=== PATIENT | male | born 1975 | race African-American/Black ===

== ENCOUNTER 2017-08-04 08:54 | Inpatient (IN) | payer OTHER ==
[2017-08-04 09:27] VITALS: BMI 24.6
--- NOTE | 2017-08-04 11:34 | HP ---
CIWA Score - CIWA Score Nausea/Vomitin Muscle Tremors: 3 Anxiety: 3 Agitation: 3 Paroxysmal Sweats: 3 Orientation: 0-Oriented Tacttile Disturbances: 1-Very Mild Itch/Numbness Auditory Disturbances: 0-None Visual Disturbances: 0-None Admission ROS S - HPI Chief Complaint: alcohol withdrawal sx Allergies/Adverse Reactions: Allergies Allergy/AdvReac Type Severity Reaction Status Date / Time pork derived (porcine) AdvReac Severe diarrhea Verified 08/04/17 10:38 NKDA Allergy Uncoded 08/04/17 10:38 History of Present Illness: 42 yo m with h/o chronical alcoholism and daily cannabis use, nicotein dependence 1/2PPD PMHX schizoaffective ot on meds, h/o withdrawal seizures, DTs? Exam Limitations: No Limitations - Ebola screening Have you traveled outside of the country in the last 21 days: No (N) Have you had contact with anyone from an Ebola affected area: No Have you been sick,other than usual withdrawal symptoms: No Do you have a fever: No - Review of Systems Constitutional: Chills, Diaphoresis, Night Sweats, Changes in sleep, Unintentional Wgt. Loss EENT: reports: No Symptoms Reported Respiratory: reports: No Symptoms reported Cardiac: reports: No Symptoms Reported GI: reports: Nausea, Poor Appetite, Poor Fluid Intake, Indigestion, Abdominal cramping : reports: No Symptoms Reported Musculoskeletal: reports: No Symptoms Reported (chest pain on palpation of chest from sleeping in unusual positions), Back Pain Integumentary: reports: Flushing, Sweating, Other (poor skin turgor) Neuro: reports: Headache, Numbness, Seizure, Tingling, Tremors Endocrine: reports: Increased Thirst Hematology: reports: No Symptoms Reported Psychiatric: reports: Judgement Intact, Mood/Affect Appropiate, Orientated x3, Anxious, Depressed Other Systems: Reviewed and Negative Patient History - Patient Medical History Hx Anemia: No Hx Asthma: No Hx Chronic Obstructive Pulmonary Disease (COPD): No Hx Cancer: No Hx Cardiac Disorders: No Hx Congestive Heart Failure: No Hx Hypertension: No Hx Hypercholesterolemia: No Hx Pacemaker: No HX Cerebrovascular Accident: No Hx Seizures: Yes (alcohol related-last episode was in 07/30/17) Hx Dementia: No Hx Diabetes: No Hx Gastrointestinal Disorders: Yes (acid reflux) Hx Liver Disease: No Hx Genitourinary Disorders: No Hx Sexually Transmitted Disorders: No Hx Renal Disease (ESRD): No Hx Thyroid Disease: No Hx Human Immunodeficiency Virus (HIV): No Hx Hepatitis C: No Hx Depression: No Hx Suicide Attempt: No (no si at this time) Hx Bipolar Disorder: No Hx Schizophrenia: Yes (schizoaffective disorder, not taking meds) - Patient Surgical History Past Surgical History: No Hx Neurologic Surgery: No Hx Cataract Extraction: No Hx Cardiac Surgery: No Hx Lung Surgery: No Hx Breast Surgery: No Hx Breast Biopsy: No Hx Abdominal Surgery: No Hx Appendectomy: No Hx Cholecystectomy: No Hx Genitourinary Surgery: No Hx Section: No Hx Orthopedic Surgery: No Anesthesia Reaction: No - PPD History Previous Implant?: Yes Documented Results: Negative w/o proof Implanted On Prior R Admission?: No PPD to be Administered?: Yes - Reproductive History Patient is a Female of Child Bearing Age (11 -55 yrs old): No Patient : No - Smoking Cessation Smoking history: Current every day smoker Have you smoked in the past 12 months: Yes Aproximately how many cigarettes per day: 10 Hx Chewing Tobacco Use: No Initiated information on smoking cessation: No 'Breaking Loose' booklet given: 08/04/17 - Substance & Tx. History Hx Alcohol Use: Yes Hx Substance Use: Yes Substance Use Type: Alcohol, Marijuana Hx Substance Use Treatment: Yes - Substances Abused Alcohol-beer/vodka Route: Oral Frequency: Daily Amount used: 1case/1 gal. Age of first use: 17 Date of Last Use: 08/03/17 Marijuana Route: Smoking Frequency: Daily Amount used: $10 Age of first use: 10 Date of Last Use: 08/04/17 Family Disease History - Family Disease History Family Disease History: Other: Father (HIV+, , heroin addiction), Mother ( crack cocaine use) Admission Physical Exam [facility] - Vital Signs Vital Signs: Vital Signs - 24 hr 08/04/17 09:24 Temperature 96.8 F L Pulse Rate 101 H Respiratory 20 Rate Blood Pressure 147/78 - Physical General Appearance: Yes: Nourished, Appropriately Dressed, Disheveled, Mild Distress, Thin, Tremorous, Irritable, Sweating, Anxious HEENTM: Yes: Within Normal Limits, EOMI, Hearing grossly Normal, Normal ENT Inspection, Normocephalic, Normal Voice, DIVINA, Pharynx Normal Respiratory: Yes: Within Normal Limits, Chest Non-Tender, Lungs Clear, Normal Breath Sounds, No Respiratory Distress, No Accessory Muscle Use Neck: Yes: Within Normal Limits, No masses,lesions,Nodules, Supple, Trachea in good position Breast: Yes: Breast Exam Deferred Cardiology: Yes: Within Normal Limits, Regular Rhythm, Regular Rate, S1, S2 Abdominal: Yes: Within Normal Limits, Normal Bowel Sounds, Non Tender, Flat, Increased Bowel Sounds Genitourinary: Yes: Within Normal Limits Back: Yes: Within Normal Limits, Normal Inspection Musculoskeletal: Yes: Within Normal Limits, full range of Motion, Gait Steady, Pelvis Stable, Other (tender over sternum) Extremities: Yes: Normal Capillary Refill, Normal Range of Motion, Non-Tender, Tremors 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, Fully Oriented, Alert, Motor Strength 5/5, Normal Response, Depressed Affect Integumentary: Yes: Within Normal Limits, Normal Color, Warm, Diaphoresis, Moist Lymphatic: Yes: Within Normal Limits - Addiitonal Findings: withdrawal sx - Diagnostic (1) Alcohol dependence with uncomplicated withdrawal Current Visit: Yes Status: Acute (2) Nicotine dependence Current Visit: Yes Status: Acute (3) Schizoaffective disorder Current Visit: Yes Status: Acute (4) Cannabis dependence Current Visit: Yes Status: Acute (5) Dehydration Current Visit: Yes Status: Acute (6) Seizures Current Visit: Yes Status: Acute Cleared for Admission [facility] - Detox or Rehab [facility] Level of Care: Medically Managed Detox Regimen/Protocol: Librium [facility] Breath Alcohol Content Breath Alcohol Content: 0.056 Urine Drug Screen - Results Drug Screen Negative: No Urine Drug Screen Results: THC-Marijuana
[2017-08-04] MEDS ORDERED: guaiFENesin/D-METHORPHAN HB 10 ML UNIT-DOSE CUPS PO PRN (11:36)
[2017-08-04] MEDS ORDERED: P-EPHED 60MG/TRIPROLIDI 2.5MG TABLET PO PRN (11:36)
[2017-08-04] MEDS ORDERED: LOPERAMIDE HCL 2 MG CAPSULE PO PRN (11:36)
[2017-08-04] MEDS ORDERED: IBUPROFEN 400 MG TABLET (FP) PO PRN (11:36)
[2017-08-04] MEDS ORDERED: MAGNESIUM CITRATE 300 ML BOTTLE PO PRN (11:36)
[2017-08-04] MEDS ORDERED: chlordiazePOXIDE HCL 25 MG CAPSULE PO PRN (11:36)
[2017-08-04] MEDS ORDERED: MENTHOL/PHENOL 1 EACH UD MM PRN (11:36)
[2017-08-04] MEDS ORDERED: MAGNESIUM HYDROX 2400MG/30ML ORAL SUSPENSION 30 ML CUP PO PRN (11:36)
[2017-08-04] MEDS ORDERED: ACETAMINOPHEN 325 MG TABLET (FP) PO PRN (11:36)
[2017-08-04] MEDS ORDERED: NICOTINE POLACRILEX 2 MG GUM BUC PRN (11:38)
[2017-08-04] MEDS: NICOTINE 14 MG/24 HOURS TOPICAL PATCH TD SCH (12:48)
[2017-08-04] MEDS: PANTOPRAZOLE 40 MG TABLET (FP) PO SCH (12:48)
[2017-08-04] MEDS ORDERED: chlordiazePOXIDE HCL 25 MG CAPSULE PO ONE (14:12)
[2017-08-04] MEDS ORDERED: ONDANSETRON *ODT* 4 MG TABLET SL PRN (14:14)
[2017-08-04 17:07] LABS: URINE APPEARANCE CLEAR; URINE BILIRUBIN NEGATIVE (NEGATIVE); URINE BLOOD NEGATIVE (NEGATIVE); URINE COLOR DKYELLOW; URINE GLUCOSE (UA) NEGATIVE (NEGATIVE); URINE KETONE NEGATIVE (NEGATIVE); URINE LEUK ESTERASE NEGATIVE (NEGATIVE); URINE NITRITE NEGATIVE (NEGATIVE); URINE UROBILINOGEN 4.0 E.U/dl mg/dL (0.2-1.0)
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
[2017-08-04] MEDS ORDERED: CYCLOBENZAPRINE HCL 10 MG TABLET (FP) PO PRN (17:38)
[2017-08-04] MEDS: chlordiazePOXIDE HCL 25 MG CAPSULE PO SCH ×2 (17:42→22:31)
[2017-08-04] MEDS: MAG HYDROX/AL HYDROX/SIMETH 30 ML UNIT-DOSE CUP PO PRN (17:44)
[2017-08-04 17:56] LABS: URINE PROTEIN 2+ (NEGATIVE)
[2017-08-04 18:26] LABS: URINE MUCUS RARE
[2017-08-04] MEDS: THIAMINE HCL 100 MG TABLET (FP) PO SCH (22:31)
[2017-08-04] MEDS: MIRTAZAPINE 15 MG TABLET (FP) PO SCH (22:31)
[2017-08-05] MEDS: chlordiazePOXIDE HCL 25 MG CAPSULE PO SCH ×4 (05:41→22:09)
[2017-08-05] MEDS: PANTOPRAZOLE 40 MG TABLET (FP) PO SCH (10:15)
[2017-08-05] MEDS: PRENATAL VITAMINS W/ FOLIC ACID TABLET (FP) PO SCH (10:15)
[2017-08-05] MEDS: NICOTINE 14 MG/24 HOURS TOPICAL PATCH TD SCH (10:16)
[2017-08-05 10:19] LABS: CHLORIDE 95 mmol/L (98-107); HEMOGLOBIN 11.9 GM/dL (11.7-16.9); MCH 31.6 pg (25.7-33.7); MCHC 33.1 g/dl (32.0-35.9); MEAN CELL VOLUME 95.5 fl (80-96); MEAN PLT VOLUME 7.7 fl (7.5-11.1); PLATELET COUNT 167 K/MM3 (134-434); POTASSIUM 3.9 mmol/L (3.5-5.1); RBC 3.77 M/mm3 (4.00-5.60); SODIUM 137 mmol/L (136-145); WHITE BLOOD COUNT 4.2 K/mm3 (4.0-10.0)
[2017-08-05 10:27] LABS: ALBUMIN 4.1 g/dl (3.4-5.0); ALK PHOS 41 U/L (45-117); ANION GAP 12 (8-16); BILIRUBIN,TOTAL 0.9 mg/dL (0.2-1.0); BLOOD UREA NITROGEN 9 mg/dL (7-18); CALCIUM 8.9 mg/dL (8.5-10.1); CO2 30 mmol/L (21-32); CREATININE 0.8 mg/dL (0.7-1.3); GLUCOSE,RANDOM 93 mg/dL (74-106); SGOT/AST 75 U/L (15-37); SGPT/ALT 74 U/L (12-78); TOT PROT 7.7 g/dl (6.4-8.2)
--- NOTE | 2017-08-05 11:29 | EKG ---
Test Reason : Blood Pressure : / mmHG Vent. Rate : 078 BPM Atrial Rate : 078 BPM P-R Int : 150 ms QRS Dur : 084 ms QT Int : 412 ms P-R-T Axes : 080 063 068 degrees QTc Int : 469 ms NORMAL SINUS RHYTHM NONSPECIFIC ST ABNORMALITY ABNORMAL ECG NO PREVIOUS ECGS AVAILABLE BASELINE ARTIFACT Confirmed by SOHAN KEMP, KATELYN ([id number]) on 08/05/2017 11:29:28 AM Referred By: Confirmed By:KATELYN PARRY MD
[2017-08-05 12:00] LABS: SICKLE CELL SCREEN NEGATIVE (NEGATIVE)
[2017-08-05] MEDS: TOLNAFTATE 1% CREAM 15 GM TUBE TP SCH ×2 (12:10→22:10)
--- NOTE | 2017-08-05 16:34 | PN ---
[facility] CIWA - CIWA Score Nausea/Vomitin-No Nausea/No Vomiting Muscle Tremors: None Anxiety: 4-Mod. Anxious/Guarded Agitation: 3 Paroxysmal Sweats: 3 Orientation: 2-Disoriented Date<2 days Tacttile Disturbances: 2-Mild Itch/Numbness/Burn Auditory Disturbances: 0-None Visual Disturbances: 2-Mild Sensitivity Headache: 0-None Present CIWA-Ar Total Score: 16 S Progress Note (SOAP) Subjective: Body aches, Fatigue, Diarrhea, Sweating. Objective: PT. A & O X 2 (UNCERTAIN ABOUT DAY /DATE), OBSERVED AMBULATING ON UNIT. NO ACUTE DISTRESS. 08/05/17 16:34 Vital Signs Temperature 99.2 F 08/05/17 13:32 Pulse Rate 105 H 08/05/17 13:32 Respiratory Rate 19 08/05/17 13:32 Blood Pressure 133/94 08/05/17 13:32 O2 Sat by Pulse Oximetry (%) Laboratory Tests 08/04/17 08/05/17 08/05/17 13:45 06:00 06:00 WBC 4.2 RBC 3.77 L Hgb 11.9 Hct 36.0 MCV 95.5 MCH 31.6 MCHC 33.1 RDW 17.0 H Plt Count 167 MPV 7.7 Sickle Cell Screen Negative Sodium 137 Potassium 3.9 Chloride 95 L Carbon Dioxide 30 Anion Gap 12 BUN 9 Creatinine 0.8 Creat Clearance w eGFR > 60 Random Glucose 93 Calcium 8.9 Total Bilirubin 0.9 AST 75 H ALT 74 Alkaline Phosphatase 41 L Total Protein 7.7 Albumin 4.1 Urine Color Dkyellow Urine Appearance Clear Urine pH 8.0 Ur Specific [place] 1.024 Urine Protein 2+ H Urine Glucose (UA) Negative Urine Ketones Negative Urine Blood Negative Urine Nitrite Negative Urine Bilirubin Negative Urine Urobilinogen 4.0 e.u/dl Ur Leukocyte Esterase Negative Urine WBC (Auto) <1 Urine RBC (Auto) 5 Urine Mucus Rare RPR Titer 08/05/17 06:00 WBC RBC Hgb Hct MCV MCH MCHC RDW Plt Count MPV Sickle Cell Screen Sodium Potassium Chloride Carbon Dioxide Anion Gap BUN Creatinine Creat Clearance w eGFR Random Glucose Calcium Total Bilirubin AST ALT Alkaline Phosphatase Total Protein Albumin Urine Color Urine Appearance Urine pH Ur Specific [place] Urine Protein Urine Glucose (UA) Urine Ketones Urine Blood Urine Nitrite Urine Bilirubin Urine Urobilinogen Ur Leukocyte Esterase Urine WBC (Auto) Urine RBC (Auto) Urine Mucus RPR Titer Nonreactive LABS NOTED. Assessment: 08/05/17 16:35 WITHDRAWAL SYMPTOMS. Plan: CONTINUE DETOX.
[2017-08-05] MEDS: THIAMINE HCL 100 MG TABLET (FP) PO SCH (22:09)
[2017-08-05] MEDS: MIRTAZAPINE 15 MG TABLET (FP) PO SCH (22:09)
[2017-08-06] MEDS: chlordiazePOXIDE HCL 25 MG CAPSULE PO SCH ×2 (05:39→10:10)
[2017-08-06] MEDS: NICOTINE 14 MG/24 HOURS TOPICAL PATCH TD SCH (10:11)
[2017-08-06] MEDS: PRENATAL VITAMINS W/ FOLIC ACID TABLET (FP) PO SCH (10:11)
[2017-08-06] MEDS: PANTOPRAZOLE 40 MG TABLET (FP) PO SCH (10:12)
[2017-08-06] MEDS: TOLNAFTATE 1% CREAM 15 GM TUBE TP SCH ×2 (10:12→22:17)
--- NOTE | 2017-08-06 12:04 | PN ---
[facility] CIWA - CIWA Score Nausea/Vomitin-Mild Nausea/No Vomiting Muscle Tremors: 4-Moderate,w/Arms Extend Anxiety: 4-Mod. Anxious/Guarded Agitation: 4-Moderately Restless Paroxysmal Sweats: 3 Orientation: 0-Oriented Tacttile Disturbances: 1-Very Mild Itch/Numbness Auditory Disturbances: 0-None Visual Disturbances: 0-None Headache: 0-None Present CIWA-Ar Total Score: 17 S Progress Note (SOAP) Subjective: Nausea, chills, diarrhea, sweating Objective: 08/06/17 11:58 Last Vital Signs Temp Pulse Resp BP Pulse Ox 97.9 F 94 H 20 136/96 08/06/17 09:02 08/06/17 09:02 08/06/17 09:02 08/06/17 09:02 Laboratory Tests 08/04/17 08/05/17 08/05/17 13:45 06:00 06:00 WBC 4.2 RBC 3.77 L Hgb 11.9 Hct 36.0 MCV 95.5 MCH 31.6 MCHC 33.1 RDW 17.0 H Plt Count 167 MPV 7.7 Sickle Cell Screen Negative Sodium 137 Potassium 3.9 Chloride 95 L Carbon Dioxide 30 Anion Gap 12 BUN 9 Creatinine 0.8 Creat Clearance w eGFR > 60 Random Glucose 93 Calcium 8.9 Total Bilirubin 0.9 AST 75 H ALT 74 Alkaline Phosphatase 41 L Total Protein 7.7 Albumin 4.1 Urine Color Dkyellow Urine Appearance Clear Urine pH 8.0 Ur Specific [place] 1.024 Urine Protein 2+ H Urine Glucose (UA) Negative Urine Ketones Negative Urine Blood Negative Urine Nitrite Negative Urine Bilirubin Negative Urine Urobilinogen 4.0 e.u/dl Ur Leukocyte Esterase Negative Urine WBC (Auto) <1 Urine RBC (Auto) 5 Urine Mucus Rare RPR Titer 08/05/17 06:00 WBC RBC Hgb Hct MCV MCH MCHC RDW Plt Count MPV Sickle Cell Screen Sodium Potassium Chloride Carbon Dioxide Anion Gap BUN Creatinine Creat Clearance w eGFR Random Glucose Calcium Total Bilirubin AST ALT Alkaline Phosphatase Total Protein Albumin Urine Color Urine Appearance Urine pH Ur Specific [place] Urine Protein Urine Glucose (UA) Urine Ketones Urine Blood Urine Nitrite Urine Bilirubin Urine Urobilinogen Ur Leukocyte Esterase Urine WBC (Auto) Urine RBC (Auto) Urine Mucus RPR Titer Nonreactive Labs noted: UA shows 2+ protein Assessment: 08/06/17 12:00 Withdrawal symptoms Noted with proteinuria Plan: Continue detox Proteinuria: encouraged to drink lots of water, repeat UA
[2017-08-06] MEDS: chlordiazePOXIDE 5 MG CAPSULE PO SCH ×2 (17:40→22:15)
[2017-08-06 18:45] LABS: URINE APPEARANCE SLCLOUDY; URINE BILIRUBIN NEGATIVE (NEGATIVE); URINE BLOOD NEGATIVE (NEGATIVE); URINE COLOR YELLOW; URINE GLUCOSE (UA) NEGATIVE (NEGATIVE); URINE KETONE NEGATIVE (NEGATIVE); URINE LEUK ESTERASE NEGATIVE (NEGATIVE); URINE NITRITE NEGATIVE (NEGATIVE); URINE PROTEIN NEGATIVE (NEGATIVE); URINE UROBILINOGEN NEGATIVE mg/dL (0.2-1.0)
[2017-08-06] MEDS: MIRTAZAPINE 15 MG TABLET (FP) PO SCH (22:15)
[2017-08-06] MEDS: THIAMINE HCL 100 MG TABLET (FP) PO SCH (22:15)
[2017-08-07] MEDS: chlordiazePOXIDE 5 MG CAPSULE PO SCH ×2 (05:04→10:10)
[2017-08-07] MEDS: TOLNAFTATE 1% CREAM 15 GM TUBE TP SCH ×2 (10:09→22:08)
[2017-08-07] MEDS: NICOTINE 14 MG/24 HOURS TOPICAL PATCH TD SCH (10:10)
[2017-08-07] MEDS: PRENATAL VITAMINS W/ FOLIC ACID TABLET (FP) PO SCH (10:10)
[2017-08-07] MEDS: PANTOPRAZOLE 40 MG TABLET (FP) PO SCH (10:10)
--- NOTE | 2017-08-07 12:22 | PN ---
[facility] Progress Note (SOAP) Subjective: SLIGHT ANXIETY,SWEATS. Objective: 08/07/17 12:21 Vital Signs Temperature 96.3 F L 08/07/17 09:18 Pulse Rate 77 08/07/17 09:18 Respiratory Rate 18 08/07/17 09:18 Blood Pressure 141/93 08/07/17 09:18 O2 Sat by Pulse Oximetry (%) Laboratory Last Values WBC 4.2 K/mm3 (4.0-10.0) 08/05/17 06:00 RBC 3.77 M/mm3 (4.00-5.60) L 08/05/17 06:00 Hgb 11.9 GM/dL (11.7-16.9) 08/05/17 06:00 Hct 36.0 % (35.4-49) 08/05/17 06:00 MCV 95.5 fl (80-96) 08/05/17 06:00 MCH 31.6 pg (25.7-33.7) 08/05/17 06:00 MCHC 33.1 g/dl (32.0-35.9) 08/05/17 06:00 RDW 17.0 % (11.9-15.9) H 08/05/17 06:00 Plt Count 167 K/MM3 (134-434) 08/05/17 06:00 MPV 7.7 fl (7.5-11.1) 08/05/17 06:00 Sickle Cell Screen Negative (NEGATIVE) 08/05/17 06:00 Sodium 137 mmol/L (136-145) 08/05/17 06:00 Potassium 3.9 mmol/L (3.5-5.1) 08/05/17 06:00 Chloride 95 mmol/L (98-107) L 08/05/17 06:00 Carbon Dioxide 30 mmol/L (21-32) 08/05/17 06:00 Anion Gap 12 (8-16) 08/05/17 06:00 BUN 9 mg/dL (7-18) 08/05/17 06:00 Creatinine 0.8 mg/dL (0.7-1.3) 08/05/17 06:00 Creat Clearance w eGFR > 60 (>60) 08/05/17 06:00 Random Glucose 93 mg/dL (74-106) 08/05/17 06:00 Calcium 8.9 mg/dL (8.5-10.1) 08/05/17 06:00 Total Bilirubin 0.9 mg/dL (0.2-1.0) 08/05/17 06:00 AST 75 U/L (15-37) H 08/05/17 06:00 ALT 74 U/L (12-78) 08/05/17 06:00 Alkaline Phosphatase 41 U/L (45-117) L 08/05/17 06:00 Total Protein 7.7 g/dl (6.4-8.2) 08/05/17 06:00 Albumin 4.1 g/dl (3.4-5.0) 08/05/17 06:00 Urine Color Yellow 08/06/17 15:35 Urine Appearance Slcloudy 08/06/17 15:35 Urine pH 7.0 (5.0-8.0) 08/06/17 15:35 Ur Specific [place] 1.016 (1.001-1.035) 08/06/17 15:35 Urine Protein Negative (NEGATIVE) 08/06/17 15:35 Urine Glucose (UA) Negative (NEGATIVE) 08/06/17 15:35 Urine Ketones Negative (NEGATIVE) 08/06/17 15:35 Urine Blood Negative (NEGATIVE) 08/06/17 15:35 Urine Nitrite Negative (NEGATIVE) 08/06/17 15:35 Urine Bilirubin Negative (NEGATIVE) 08/06/17 15:35 Urine Urobilinogen Negative mg/dL (0.2-1.0) 08/06/17 15:35 Ur Leukocyte Esterase Negative (NEGATIVE) 08/06/17 15:35 Urine WBC (Auto) <1 /hpf (3-5) 08/04/17 13:45 Urine RBC (Auto) 5 /hpf (0-3) 08/04/17 13:45 Urine Mucus Rare 08/04/17 13:45 RPR Titer Nonreactive (NONREACTIVE) 08/05/17 06:00 Assessment: 08/07/17 12:21 DECREASED WITHDRAWAL SX Plan: CONTINUE DETOX
[2017-08-07] MEDS: chlordiazePOXIDE HCL 10 MG CAPSULE PO SCH ×2 (17:40→22:07)
[2017-08-07] MEDS: MAG HYDROX/AL HYDROX/SIMETH 30 ML UNIT-DOSE CUP PO PRN (21:01)
[2017-08-07] MEDS: THIAMINE HCL 100 MG TABLET (FP) PO SCH (22:07)
[2017-08-07] MEDS: MIRTAZAPINE 15 MG TABLET (FP) PO SCH (22:07)
[2017-08-08] MEDS: MAG HYDROX/AL HYDROX/SIMETH 30 ML UNIT-DOSE CUP PO PRN (05:06)
[2017-08-08] MEDS: chlordiazePOXIDE HCL 10 MG CAPSULE PO SCH (05:06)
[2017-08-08 05:47] VITALS: BP 141/79; PULSE 87; TEMP 97.7
--- NOTE | 2017-08-08 11:36 | DS ---
[facility] Detox Discharge Summary Admission Date: 08/04/17 Discharge Date: 08/08/17 - History Present History: Alcohol Dependence, Cannabis Dependence Additional Comments: PATIENT GOING HOME. PATIENT ADVISED TO CONSIDER LOCAL 12-STEP / NA / AA OUTPATIENT SUPPORT GROUPS FOR AFTERCARE. PATIENT WAS DISCHARGED FROM DETOX UNIT IN STABLE MEDICAL CONDITION. Pertinent Past History: Dehydration, Insomnia, Schizoaffective Disorder, History of Seizures (ETOH- Related), Nicotine Dependence. - Physical Exam Results Vital Signs: Vital Signs Temperature 97.7 F 08/08/17 05:46 Pulse Rate 87 08/08/17 05:46 Respiratory Rate 18 08/08/17 05:46 Blood Pressure 141/79 08/08/17 05:46 O2 Sat by Pulse Oximetry (%) Pertinent Admission Physical Exam Findings: WITHDRAWAL SYMPTOMS. Laboratory Tests 08/04/17 08/05/17 08/05/17 13:45 06:00 06:00 WBC 4.2 RBC 3.77 L Hgb 11.9 Hct 36.0 MCV 95.5 MCH 31.6 MCHC 33.1 RDW 17.0 H Plt Count 167 MPV 7.7 Sickle Cell Screen Negative Sodium 137 Potassium 3.9 Chloride 95 L Carbon Dioxide 30 Anion Gap 12 BUN 9 Creatinine 0.8 Creat Clearance w eGFR > 60 Random Glucose 93 Calcium 8.9 Total Bilirubin 0.9 AST 75 H ALT 74 Alkaline Phosphatase 41 L Total Protein 7.7 Albumin 4.1 Urine Color Dkyellow Urine Appearance Clear Urine pH 8.0 Ur Specific [place] 1.024 Urine Protein 2+ H Urine Glucose (UA) Negative Urine Ketones Negative Urine Blood Negative Urine Nitrite Negative Urine Bilirubin Negative Urine Urobilinogen 4.0 e.u/dl Ur Leukocyte Esterase Negative Urine WBC (Auto) <1 Urine RBC (Auto) 5 Urine Mucus Rare RPR Titer 08/05/17 08/06/17 06:00 15:35 WBC RBC Hgb Hct MCV MCH MCHC RDW Plt Count MPV Sickle Cell Screen Sodium Potassium Chloride Carbon Dioxide Anion Gap BUN Creatinine Creat Clearance w eGFR Random Glucose Calcium Total Bilirubin AST ALT Alkaline Phosphatase Total Protein Albumin Urine Color Yellow Urine Appearance Slcloudy Urine pH 7.0 Ur Specific [place] 1.016 Urine Protein Negative Urine Glucose (UA) Negative Urine Ketones Negative Urine Blood Negative Urine Nitrite Negative Urine Bilirubin Negative Urine Urobilinogen Negative Ur Leukocyte Esterase Negative Urine WBC (Auto) Urine RBC (Auto) Urine Mucus RPR Titer Nonreactive LABS NOTED. - Treatment Hospital Course: Detox Protocol Followed, Detoxed Safely, Responded well, Discharged Condition Good Patient has Accepted a Rehab Referral to: PATIENT ADVISED TO CONSIDER LOCAL 12- STEP/NA/AA OUTPATIENT SUPPORT GROUPS. - Medication Discharge Medications: Ambulatory Orders Mirtazapine [Remeron -] 15 mg PO HS #30 tablet 08/04/17 Mirtazapine [Remeron -] 30 mg PO HS 08/04/17 - Diagnosis (1) Alcohol dependence with uncomplicated withdrawal Status: Acute (2) Cannabis dependence Status: Acute (3) Dehydration Status: Acute (4) Nicotine dependence Status: Acute Qualifiers: Nicotine product type: cigarettes Substance use status: in withdrawal Qualified Code(s): F17.213 - Nicotine dependence, cigarettes, with withdrawal (5) Seizures Status: Chronic (6) Schizoaffective disorder Status: Chronic Qualifiers: Schizoaffective disorder type: unspecified Qualified Code(s): F25.9 - Schizoaffective disorder, unspecified (7) Insomnia Status: Acute Qualifiers: Insomnia type: unspecified Qualified Code(s): G47.00 - Insomnia, unspecified (8) Substance induced mood disorder Status: Acute - AMA Did Patient Leave Against Medical Advice: No
== END 2017-08-08 06:10 | disposition home or self-care (01) | DRG 775 ==
LOC: YASAS 08:54 → Y3N 11:40
PROVIDERS: ADMIT Internal Medicine; ATTEND Internal Medicine
PROC: HZ2ZZZZ Detoxification Services for Substance Abuse Treatment (ICD-10-PCS; principal; 2017-08-04)
DX: F10.230 Alcohol dependence with withdrawal, uncomplicated (principal); F12.20 Cannabis dependence, uncomplicated; F17.213 Nicotine dependence, cigarettes, with withdrawal; F19.24 Other psychoactive substance dependence with psychoactive substance-induced mood disorder; F25.9 Schizoaffective disorder, unspecified; K21.9 Gastro-esophageal reflux disease without esophagitis; E86.0 Dehydration; G47.00 Insomnia, unspecified; R80.9 Proteinuria, unspecified; Z91.018 Allergy to other foods; Z86.69 Personal history of other diseases of the nervous system and sense organs
CPT/HCPCS: 36415; 80053; 81003; 81015; 85027; 85660; 86593; 93005; 93010